=== PATIENT | female | born 2000 | race Caucasian/White ===

== ENCOUNTER 2021-03-24 10:06 | Emergency (ER) | payer OTHER ==
[~2021-03-24] VITALS: Ht 165.1 cm; Wt 97.5 kg
--- NOTE | 2021-03-24 10:21 | NUR ---
Dr Deyvi Clark at bedside for MSE.
[2021-03-24] MEDS ORDERED: IOHEXOL 300MG/ML 100 ML INFUS..BTL ONE (10:45)
[2021-03-24] MEDS ORDERED: KETOROLAC TROMETHAMINE 15 MG INJ IVP ONE (10:45)
[2021-03-24] MEDS ORDERED: ACETAMINOPHEN 325 MG TABLET PO ONE (10:45)
[2021-03-24] MEDS ORDERED: SWABABLE VALVE TRANSFER SET EA MC ONE (10:45)
[2021-03-24] MEDS ORDERED: IV NORMAL SALINE 250 ML IV ONE (10:46)
[2021-03-24 11:12] LABS: BASOPHILS # (AUTO) 0.1 K/uL (0.0-8.0); BASOPHILS % (AUTO) 0.8 % (0.0-2.0); EOSINOPHILS # (AUTO) 0.2 K/uL (0.0-0.7); EOSINOPHILS % (AUTO) 2.6 % (0.0-7.0); HEMATOCRIT 37.5 % (31.2-41.9); HEMOGLOBIN 12.5 g/dL (10.9-14.3); LYMPHOCYTES # (AUTO) 2.4 K/uL (20.0-40.0); LYMPHOCYTES % (AUTO) 32.4 % (20.5-51.5); MEAN CORPUSCULAR HEMOGLOBIN 31.2 uug (24.7-32.8); MEAN CORPUSCULAR HGB CONC 33 g/dL (32.3-35.6); MEAN CORPUSCULAR VOLUME 93.8 fL (75.5-95.3); MONOCYTES # (AUTO) 0.8 K/uL (2.0-10.0); MONOCYTES % (AUTO) 10.4 % (0.0-11.0); NEUTROPHILS % (AUTO) 53.8 % (38.5-71.5); PLATELET COUNT (AUTO) 286 K/uL (179-408); WHITE BLOOD COUNT (AUTO) 7.5 K/uL (3.8-11.8)
[2021-03-24 11:15] LABS: CREATININE 0.7 mg/dL (0.6-1.3); POTASSIUM 4.4 mmol/L (3.5-5.1)
[2021-03-24 11:20] LABS: *URINE HCG, QUAL NEGATIVE (NEGATIVE)
--- NOTE | 2021-03-24 11:21 | NUR ---
Patient is resting in bed at this time, sleeping with pillow and blanket provided. Verbalized feeling comfort after measures provided and meds given. Pending lab reports/ test for CT imaging. RN witnessed informed consent for contrast signed by patient.
[2021-03-24] MEDS ORDERED: ACETAMINOPHEN 325 MG TABLET ONE (11:22)
[2021-03-24] MEDS ORDERED: KETOROLAC TROMETHAMINE 15 MG INJ ONE (11:22)
--- NOTE | 2021-03-24 11:36 | NUR ---
Pt has negative test, was sent to CT by tech. Pt left in stable condition.
--- NOTE | 2021-03-24 12:00 | NUR ---
Pt back from CT in stable condition.
--- NOTE | 2021-03-24 12:30 | NUR ---
F/up imaging readings from [facility] [phone] Bear is working on Thoracic CT readings.
[2021-03-24] MEDS ORDERED: CYCL5TAB PO (13:00)
[2021-03-24] MEDS ORDERED: IBUP-1955 PO (13:00)
--- NOTE | 2021-03-24 13:10 | NUR ---
Pt has been cleared for DC by ERMD. KENNEDY at bedside for DC instructions, reinforced by RN. Written and verbal after care instructions given. Patient verbalizes understanding of instructions. Stressed follow up or return to ER for worsening s/s. IV removed. Catheter intact and site benign. Pressure and 4x4 gauze applied to site. No bleeding noted. Patient left ER in stable condition and steady gait.
[2021-03-24 13:11] VITALS: BP 110/70
== END 2021-03-24 13:12 | disposition home or self-care (01) ==
LOC: ER 10:06
DX: M54.9 Dorsalgia, unspecified (principal); R20.2 Paresthesia of skin; M51.26 Other intervertebral disc displacement, lumbar region; F11.10 Opioid abuse, uncomplicated; R94.31 Abnormal electrocardiogram [ECG] [EKG]
CPT/HCPCS: 36415; 72128; 72131; 80048; 83880; 84484; 84703; 85025; 85379; 93005; 96374; 99285; J1885; 70030-TC; A4663; J7030; J7050; Q9967